=== PATIENT | male | born 1970 | race Caucasian/White ===

== ENCOUNTER 2022-12-19 06:41 | Emergency (ER) | payer OTHER ==
[~2022-12-19] VITALS: Ht 177.8 cm; Wt 108.0 kg
[2022-12-19 06:46] VITALS: BP 143/82; PULSE 103; RESP 19; TEMP 98.7
[2022-12-19] MEDS ORDERED: ESCI-8 PO (06:50)
[2022-12-19] MEDS ORDERED: AMLO-257 PO (06:50)
[2022-12-19] MEDS ORDERED: ATOR40TA28 PO (06:50)
[2022-12-19] MEDS ORDERED: LOSA-381 PO (06:50)
[2022-12-19] MEDS ORDERED: METF-1211 PO (06:50)
[2022-12-19] MEDS ORDERED: ZINC OXIDE 16% PASTE 57 GM TUBE TP ONE (07:00)
[2022-12-19] MEDS ORDERED: PHENYLEPHRINE/COCOA BUTTER RECTAL SUPPOSITORY PR ONE (07:00)
[2022-12-19 07:06] LABS: GLUCOMETER DEV NAME(LOC) ER.6; GLUCOSE,POINT OF CARE 153 MG/DL (70-110)
== END 2022-12-19 07:55 | disposition home or self-care (01) ==
LOC: EMS 06:47
DX: F42.4 Excoriation (skin-picking) disorder (principal); K60.0 Acute anal fissure; E11.9 Type 2 diabetes mellitus without complications; E78.00 Pure hypercholesterolemia, unspecified; I10 Essential (primary) hypertension
CPT/HCPCS: 72170; 82962; 99283

== ENCOUNTER 2022-12-23 04:23 | Emergency (ER) | payer OTHER ==
[~2022-12-23] VITALS: Ht 177.8 cm; Wt 109.0 kg
[~2022-12-23 04:23] MED LIST: AMLO-257 PO; ATOR40TA28 PO; ESCI-8 PO; LOSA-381 PO; METF-1211 PO
[2022-12-23 04:28] VITALS: TEMP 98
[2022-12-23 04:55] LABS: HEMOGLOBIN 12.2 g/dL (13.5-17.5); MEAN CORPUSCULAR HEMOGLOBIN 30.5 pg (26.0-34.0); MEAN CORPUSCULAR VOLUME 92 fL (80-100); PLATELET COUNT (AUTO) 435 K/uL (150-450); RED BLOOD CELL COUNT(AUTO) 4.01 MIL/uL (4.50-5.90); RED CELL DISTRIBUTION WIDTH 13.8 % (11.5-14.5); WHITE BLOOD COUNT (AUTO) 9.8 K/uL (4.5-11.0)
[2022-12-23 05:05] LABS: CREATININE 1.31 mg/dL (0.60-1.30)
[2022-12-23 05:12] LABS: ALBUMIN 2.6 g/dL (3.4-5.0); BILIRUBIN,TOTAL 0.4 mg/dL (0.1-1.0); TOTAL PROTEIN, SERUM 7.5 g/dL (6.4-8.2)
[2022-12-23 05:22] LABS: BAND NEUTROPHILS % (MANUAL) 26 % (0-5); LYMPHOCYTES % (MANUAL) 11 % (22-44); METAMYELOCYTES % 2 % (0-0); MONOCYTES % (MANUAL) 11 % (2-9); RBC MORPHOLOGY COMMENT NORMAL RBC MORPH; SEGMENTED NEUTROPHILS % 50 % (40-70); TOTAL CELLS COUNTED 100
[2022-12-23] MEDS ORDERED: IOHEXOL 350 MG/ML 100 ML VIAL ONE (06:43)
[2022-12-23] MEDS ORDERED: SODIUM CHLORIDE 0.9% 100 ML ONE (06:43)
[2022-12-23 07:57] VITALS: BP 122/77; PULSE 82; RESP 16
[2022-12-23] MEDS ORDERED: CLIN300C58 PO (08:04)
[2022-12-23] MEDS ORDERED: METR500 PO (08:04)
== END 2022-12-23 08:32 | disposition home or self-care (01) ==
LOC: EMS 04:24
DX: K61.1 Rectal abscess (principal); E11.9 Type 2 diabetes mellitus without complications; E78.00 Pure hypercholesterolemia, unspecified; I10 Essential (primary) hypertension
CPT/HCPCS: 99285; 74177; 80053; 85007; 85027; 36415; Q9967; J7050